=== PATIENT | female | born 1955 | race Caucasian/White ===

== ENCOUNTER 2017-09-16 10:02 | Emergency (ER) | payer OTHER ==
[~2017-09-16] VITALS: Ht 175.3 cm; Wt 74.8 kg
[~2017-09-16 10:02] MED LIST: AMOXICILLIN500 M3 PO; BACTRIM DS TAB1 EACH PO; KEFLEX500 M1 PO
--- NOTE | 2017-09-16 10:27 | ED GENERAL ADULT ---
History of Present Illness General Chief Complaint: General Adult Stated Complaint: ELEVATED BP,BLURRY VISION,CHEATHAM Source: patient Exam Limitations: no limitations Vital Signs & Intake/Output Vital Signs & Intake/Output Vital Signs Date Time Temp Pulse Resp B/P B/P Pulse O2 O2 Flow FiO2 Mean Ox Delivery Rate 09/16 1217 98.2 57 18 208/98 100 Room Air 09/16 1005 97.6 61 18 206/80 97 Room Air Allergies Coded Allergies: NO KNOWN ALLERGIES (02/03/16) Reconcile Medications Amoxicillin 500 MG TABLET 1 TAB PO TID cellulitis Cephalexin (Keflex) 500 MG CAPSULE 1 CAP PO TID ABSCESS Lisinopril 10 MG TABLET 1 TAB PO DAILY blood pressure Sulfamethoxazole/Trimethoprim (Bactrim Ds Tablet) 1 EACH TABLET 1 TAB PO BID abscess Triage Note: PT REPORTS INCREASED BP WITH BLURRY VISION AND HEADACHES. SHE HAS BEEN MONITORING HER BP X 1 MONTH NOW AND HAS BEEN STEADLY INCREASING. Triage Nurses Notes Reviewed? yes HPI: Patient presents for evaluation of elevated blood pressure over the past 3 weeks. Patient states she's been feeling a little foggy and a little dizzy with a clogged left ear. She went to a walk-in center and was told to go to the emergency department for evaluation. She was told by her primary care physician last year that she had elevated blood pressure but elected to try dietary control. She states she's been experiencing blurred vision for about a week and significant head pressure but no headache. She denies chest pain or dyspnea. She is a nonsmoker and denies alcohol or drug use. Past History Travel History Traveled to [place] past 21 day No Medical History Any Pertinent Medical History? see below for history Neurological: NONE EENT: NONE Cardiovascular: NONE Respiratory: NONE Gastrointestinal: NONE Hepatic: NONE Renal: NONE Musculoskeletal: NONE Psychiatric: NONE Endocrine: NONE Blood Disorders: NONE Cancer(s): NONE SV[employer]OR/Reproductive: NONE Surgical History Surgical History: none Psychosocial History What is your primary language Japanese Tobacco Use: Never used Family History Hx Contributory? No Review of Systems Review of Systems Constitutional: Reports: no symptoms. EENTM: Reports: see HPI. Respiratory: Reports: no symptoms. Cardiovascular: Reports: no symptoms. GI: Reports: no symptoms. Genitourinary: Reports: no symptoms. Musculoskeletal: Reports: no symptoms. Skin: Reports: no symptoms. Neurological/Psychological: Reports: no symptoms. Hematologic/Endocrine: Reports: no symptoms. Immunologic/Allergic: Reports: no symptoms. All Other Systems: Reviewed and Negative Physical Exam Physical Exam General Appearance: see below Comments: Gen.: Well-nourished, well-developed, no acute respiratory distress. Head: Normocephalic, atraumatic. Eyes: Normal inspection bilaterally Ears: Normal inspection bilaterally Nose: Normal inspection Throat/mouth : Moist mucosa Neck: Supple, full range of motion, no goiter Heart: Regular rate and rhythm, no murmurs rubs or gallops Lungs: Clear to auscultation bilaterally with normal air entry Chest: Nontender Back: Normal range of motion Abdomen: Soft, nontender, nondistended, normal bowel sounds Extremities: Normal range of motion grossly, equal radial pulses, no cyanosis clubbing or edema Neurologic: Cranial nerves grossly intact, speech is clear Skin: warm and dry Psychiatric: Calm, cooperative, no apparent delusions or hallucinations Core Measures ACS in differential dx? No CVA/TIA Diagnosis: No Sepsis Present: No Sepsis Focused Exam Completed? No Progress Differential Diagnoses I considered the following diagnoses in my evaluation of the patient: Hypertensive urgency hypertensive emergency hypertensive encephalopathy CVA/TIA Plan of Care: Orders Procedure Date/time Status TSH REFLEX 09/16 1038 Complete TROPONIN LEVEL 09/16 1036 Complete MAGNESIUM 09/16 1036 Complete WESTERGREN SED RATE 09/16 1036 Active CBC WITHOUT DIFFERENTIAL 09/16 1036 Active BASIC METABOLIC PANEL 09/16 1036 Complete EKG 09/16 1036 Active Laboratory Tests 09/16/17 1051: TSH &T3 &Free T4 Intrp 1.030 09/16/17 1051: Anion Gap 8, Estimated GFR > 60, BUN/Creatinine Ratio 36.7 H, Glucose 105 H, Calcium 8.7, Magnesium 2.1, Troponin I < 0.01, CBC w Diff NO MAN DIFF REQ, RBC 4.81, MCV 90.3, MCH 30.5, MCHC 33.8, RDW 13.0, MPV 8.4, Gran % 44.6, Lymphocytes % 43.8, Monocytes % 7.0, Eosinophils % 4.0, Basophils % 0.6, Absolute Granulocytes 2.8, Absolute Lymphocytes 2.7, Absolute Monocytes 0.4, Absolute Eosinophils 0.2, Absolute Basophils 0, ESR Westergren Pending Diagnostic Imaging: Discussed w/RAD: CT Scan. Radiology Impression: PATIENT: AWAIS SCOTT PRESENT AGE: 62 PATIENT ACCOUNT NO: [id number] : 56 LOCATION: [facility] ORDERING PHYSICIAN: Arpit Bueno MD SERVICE DATE: 09/16/17 EXAM TYPE: CAT - CT HEAD WO IV CONTRAST EXAMINATION: CT HEAD WITHOUT CONTRAST CLINICAL INFORMATION: Head pressure. Hypertension. COMPARISON: None TECHNIQUE: Contiguous axial imaging was performed from the skull base to vertex without intravenous administration of contrast. DLP: 613 mGy-cm FINDINGS: There is no intracranial hemorrhage, hematoma, or extra-axial fluid collection. The ventricles are normal in size. There is no hydrocephalus, edema, or mass effect. The gant- white matter differentiation appears symmetric. There is no visible acute territorial infarct or mass lesion. The calvarium appears intact. There is no pneumocephalus or orbital emphysema. There is mucosal thickening right maxillary sinus. Some trace mucosal thickening is scattered in the ethmoid air cells. The remainder the visualized sinuses and middle ears and mastoids appear clear. IMPRESSION: 1. No acute intracranial abnormality. 2. Mucosal thickening right maxillary sinus and lesser mucosal thickening ethmoid air cells. DICTATED BY: Nba Sexton MD DATE/TIME DICTATED:09/16/171110 STUDENT SUPPORT COUNSELOR: PÉREZ DATE/TIME TRANSCRIBED:09/16/171110 CONFIDENTIAL, DO NOT COPY WITHOUT APPROPRIATE AUTHORIZATION. <Electronically signed in Other Vendor System> SIGNED BY: Nba Sexton MD 09/16/17 1121 Initial ED EKG: NSR, rate (56) Departure Departure Disposition: HOME OR SELF CARE Condition: Stable Clinical Impression Primary Impression: Hypertension Qualifiers: Hypertension type: unspecified Qualified Code: I10 - Essential ( primary) hypertension Referrals: Christine Nelson MD (PCP/Family) Additional Instructions: Lisinopril as prescribed. Low salt diet. Avoid caffeine. Follow-up with your primary care physician within 48-72 hours for reevaluation of your blood pressure. Return if any concerns or sudden worsening. Please note that there might be incidental findings in your evaluation that are unrelated to the current emergency department visit. Please notify your primary care doctor about this emergency department visit in order to obtain and review all of the testing performed so that these incidental findings can be monitored as needed. If you had an x-ray performed, please understand that some fractures may not be seen on the initial set of x-rays. If your symptoms persist you might need a repeat set of x-rays to check for such a fracture. If you had a laceration evaluated, please understand that foreign bodies such as glass or wood may not be visible to the naked eye or on plain x-rays. If the wound becomes red, swollen, increasingly more painful or if there is any drainage from the wound, please have it reevaluated by a physician for the possibility of a retained foreign body. If you're unable to follow up as outlined in the discharge instructions please return to the emergency department. Thank you for choosing the [facility] Emergency Department for your care. It was a pleasure to serve you today. Arpit Bueno M.D. [facility] Departure Forms: Customer Survey General Discharge Information Prescriptions: Current Visit Scripts Lisinopril 1 TAB PO DAILY #30 TAB Critical Care Note Critical Care Note Critical Care Time: non-applicable
--- NOTE | 2017-09-16 11:21 | CT SCAN REPORT ---
EXAMINATION: CT HEAD WITHOUT CONTRAST CLINICAL INFORMATION: Head pressure. Hypertension. COMPARISON: None TECHNIQUE: Contiguous axial imaging was performed from the skull base to vertex without intravenous administration of contrast. DLP: 613 mGy-cm FINDINGS: There is no intracranial hemorrhage, hematoma, or extra-axial fluid collection. The ventricles are normal in size. There is no hydrocephalus, edema, or mass effect. The gant-white matter differentiation appears symmetric. There is no visible acute territorial infarct or mass lesion. The calvarium appears intact. There is no pneumocephalus or orbital emphysema. There is mucosal thickening right maxillary sinus. Some trace mucosal thickening is scattered in the ethmoid air cells. The remainder the visualized sinuses and middle ears and mastoids appear clear. IMPRESSION: 1. No acute intracranial abnormality. 2. Mucosal thickening right maxillary sinus and lesser mucosal thickening ethmoid air cells.
[2017-09-16 11:26] LABS: ABSOLUTE BASOPHIL COUNT 0 /CUMM (0.0-0.2); ABSOLUTE EOSINOPHIL COUNT 0.2 /CUMM (0.0-0.7); ABSOLUTE GRANULOCYTE CT 2.8 /CUMM (1.4-6.5); ABSOLUTE LYMPH COUNT 2.7 /CUMM (1.2-3.4); ABSOLUTE MONOCYTE COUNT 0.4 /CUMM (0.10-0.60); BASOPHIL % 0.6 % (0.0-2.0); GRANULOCYTE % 44.6 % (42.2-75.2); HEMATOCRIT 43.4 % (37-47); MEAN CORPUSCULAR HGB 30.5 PG (27.0-31.0); MEAN CORPUSCULAR HGB CONC 33.8 G/DL (33.0-37.0); MEAN CORPUSCULAR VOLUME 90.3 FL (81.0-99.0); MEAN PLATELET VOLUME 8.4 FL (7.4-10.4); PLATELET COUNT 255 /CUMM (130-400); RED BLOOD CELL CT 4.81 /CUMM (4.20-5.40); WHITE BLOOD CELL COUNT 6.2 /CUMM (4.8-10.8)
[2017-09-16 12:17] VITALS: BP 208/98
[2017-09-16] MEDS ORDERED: LISINOPRIL10 M1 PO (12:23)
== END 2017-09-16 12:27 ==
LOC: ERH 10:02
PROVIDERS: Emergency Medicine
DX: I10 Essential (primary) hypertension (principal)
CPT/HCPCS: 93005; 93010